=== PATIENT | female | born 1965 | race Caucasian/White ===

== ENCOUNTER 2023-07-23 07:56 | Emergency (ER) | payer BC, OTHER ==
[~2023-07-23] VITALS: Ht 157.5 cm; Wt 84.0 kg
[2023-07-23] MEDS ORDERED: BRIN1TAB PO (08:04)
[2023-07-23] MEDS ORDERED: ATOR1TAB19 PO (08:04)
[2023-07-23] MEDS ORDERED: METF-839 PO (08:04)
[2023-07-23 08:40] LABS: BASO # 0.1 10^3/uL (0.0-0.2); BASO % 0.4 % (0.0-1.0); EOS % 0.2 % (0.0-3.0); HEMATOCRIT 44.5 % (36.0-47.0); HEMOGLOBIN 14.3 g/dl (12.0-15.5); LYMPH # 1.2 10^3/uL (1.5-5.0); LYMPH % 9.5 % (24.0-44.0); MEAN CORPUSCULAR HEMOGLOBIN 29.8 pg (27.0-33.0); MEAN CORPUSCULAR HGB CONC 32.1 g/dl (32.0-36.5); MEAN CORPUSCULAR VOLUME 92.7 fl (80.0-96.0); MONO # 0.5 10^3/uL (0.0-0.8); NEUTROPHILS # 10.6 10^3/uL (1.5-8.5); NEUTROPHILS % 85.3 % (36.0-66.0); PLATELET COUNT, AUTOMATED 287 10^3/uL (150-450); WHITE BLOOD COUNT 12.4 10^3/uL (4.0-10.0)
[2023-07-23 08:59] LABS: BLOOD UREA NITROGEN 15 MG/DL (9-23); CALCIUM LEVEL 8.8 MG/DL (8.5-10.1); CARBON DIOXIDE LEVEL 26 MMOL/L (20-31); CHLORIDE LEVEL 109 MMOL/L (98-107); CREATININE FOR GFR 0.76 MG/DL (0.55-1.30); GLOMERULAR FILTRATION RATE > 60.0 (>51); GLUCOSE, FASTING 129 MG/DL (60-100); SODIUM LEVEL 143 MMOL/L (136-145)
[2023-07-23] MEDS ORDERED: KETOROLAC 30 MG/ML 1ML VIAL IV ONE (11:20)
[2023-07-23] MEDS ORDERED: ONDANSETRON 4MG 2ML VIAL IV ONE (11:20)
[2023-07-23] MEDS ORDERED: NS 1,000 ML IV ONE (11:20)
[2023-07-23] MEDS ORDERED: KETO10TAB PO (12:17)
[2023-07-23] MEDS ORDERED: FLOM0.4C39 PO (12:17)
[2023-07-23] MEDS ORDERED: ONDA4TAB6 PO (12:17)
[2023-07-23] MEDS ORDERED: HYDR-3713 PO (12:17)
[2023-07-23 12:29] VITALS: BP 122/70; TEMP 97; O2SAT 100
== END 2023-07-23 12:30 | disposition home or self-care (01) ==
LOC: M ED 07:56
DX: N20.1 Calculus of ureter (principal); E78.5 Hyperlipidemia, unspecified; F41.9 Anxiety disorder, unspecified; F32.A Depression, unspecified; Z79.899 Other long term (current) drug therapy
CPT/HCPCS: 74176; 80048; 81001; 85025; 96374; 96375; 99284; J1885; J2405